=== PATIENT | male | born 1950 | race Caucasian/White ===

== ENCOUNTER 2017-12-04 11:04 | Day surgery (SDC) | payer BC, OTHER ==
[~2017-12-04] VITALS: Ht 180.3 cm; Wt 81.9 kg
[~2017-12-04 11:04] MED LIST: ASPIR-LOW81 MG PO; ATORVASTATIN CA80 MG PO; Ambien PO; CLOPIDOGREL75 MG PO; Ecotrin PO; LISINOPRIL5 MG PO; Lipitor PO; Lopressor PO; METFORMIN HCL850 MG PO; METOPROLOL TART25 MG PO; NITROSTAT0.4 MG SL; Nitrostat,NitroQuick SL; Zestril,Prinivil PO
[2017-12-04 18:18] VITALS: BP 135/79
[2017-12-04 19:46] VITALS: BP 123/81
[2017-12-04 19:48] VITALS: BP 121/78
[2017-12-04 23:51] VITALS: BP 117/73
[2017-12-05 04:03] VITALS: BP 104/64
[2017-12-05 05:13] LABS: BASOPHIL (%) 0.5 % (0-1); EOSINOPHIL COUNT 0.2 K/uL (0-0.3); HEMATOCRIT 39.3 % (38.0-50.0); HEMOGLOBIN 13.4 G/DL (12.5-16.6); IMMATURE GRANULOCYTE (%) 0.3 % (0.0-0.7); LYMPHOCYTE (%) 16.5 % (15-42); MCH 32.7 PG (29.0-34.0); MCHC 34.1 G/DL (30.0-36.0); MCV 95.9 FL (86-99); MONOCYTE (%) 14.3 % (3-12); MONOCYTE COUNT 0.9 K/uL (0-0.8); NEUTROPHIL (%) 65.4 % (45-76); NEUTROPHIL COUNT 4.1 K/uL (1.8-6.4); PLATELET COUNT 179 K/uL (156-360); RBC DIS.WIDTH-CV 12.1 % (11.8-14.6); RBC DIS.WIDTH-SD 42.4 % (39-53); WHITE BLOOD COUNT 6.3 K/uL (4.1-10.2)
[2017-12-05 05:41] LABS: CHLORIDE 106 MEQ/L (99-109); CREATININE 0.9 MG/DL (0.6-1.3); GFR ESTIMATE (CALCULATED) > 59 mL/min/ (58.99-99999); GLUCOSE 91 mg/dL (70-99); POTASSIUM 4.3 MEQ/L (3.7-5.4); SODIUM 140 MEQ/L (136-147); UREA NITROGEN (BUN) 15 mg/dL (9-23)
[2017-12-05 08:33] VITALS: BP 124/79
[2017-12-05 11:04] VITALS: BP 112/74
[2017-12-05] MEDS ORDERED: ASPIRIN EC325 MG PO (12:25)
== END 2017-12-05 13:24 | disposition home or self-care (01) ==
LOC: CATH 11:04 → 2SOUTH 15:15 → 4EAST 15:15 → 2SOUTH 15:15 → ENRESERV 15:19 → CANRESERV 15:19 → ENRESERV 15:21 → 4EAST 17:56
PROVIDERS: Internal Medicine Cardiovascular Disease
DX: I25.10 Atherosclerotic heart disease of native coronary artery without angina pectoris (principal); I25.82 Chronic total occlusion of coronary artery; I25.2 Old myocardial infarction; I10 Essential (primary) hypertension; E78.5 Hyperlipidemia, unspecified; I42.9 Cardiomyopathy, unspecified; Z95.5 Presence of coronary angioplasty implant and graft; Z79.82 Long term (current) use of aspirin; Z79.02 Long term (current) use of antithrombotics/antiplatelets; Z79.84 Long term (current) use of oral hypoglycemic drugs
CPT/HCPCS: 80048; 82948; 85025; 85347; 93005; C1725; C1769; C1874; C1887; G0378; J0153; J0583; J1644; J2250; J3010; J7030; J7050